=== PATIENT | male | born 1970 | race Caucasian/White ===

== ENCOUNTER 2017-07-06 13:18 | Emergency (ER) | payer BC ==
[~2017-07-06] VITALS: Ht 170.2 cm; Wt 109.0 kg
[2017-07-06 14:19] LABS: CHLORIDE 100 mEq/L (99-109); POTASSIUM 3.7 mEq/L (3.7-5.4); SODIUM 136 mEq/L (136-147)
[2017-07-06 14:21] LABS: GLUCOSE 150 mg/dL (70-99)
[2017-07-06 14:27] LABS: HEMATOCRIT 41.2 % (38.0-50.0); MCH 21.7 PG (29.0-34.0); MCV 67.7 FL (86-99); PLATELET COUNT 307 K/uL (156-360); RBC DIS.WIDTH-CV 14.3 % (11.8-14.6); RBC DIS.WIDTH-SD 33.5 % (39-53); RED BLOOD COUNT 6.09 M/uL (4.00-5.50); WHITE BLOOD COUNT 8.6 K/uL (4.1-10.2)
[2017-07-06 14:38] LABS: GFR ESTIMATE (CALCULATED) > 59 mL/min/
[2017-07-06 15:24] LABS: UREA NITROGEN (BUN) 28 mg/dL (9-23)
[2017-07-06 15:26] LABS: ALKALINE PHOSPHATASE 62 IU/L (3-129); ANION GAP 11 MEQ/L (2-14)
[2017-07-06 15:27] LABS: LIPASE 15 U/L (1.0-51.0); TOTAL BILIRUBIN 0.7 MG/DL (0.0-1.0)
[2017-07-06 17:14] LABS: ADD MIUA? YES; BILIRUBIN NEGATIVE; BLOOD NEGATIVE; COLOR YELLOW ((YELLOW)); GLUCOSE (STRIP) NEGATIVE; KETONES NEGATIVE; LEUKOCYTES NEGATIVE; NITRITE NEGATIVE; PROTEIN (STRIP) 30; SPECIFIC GRAVITY 1.026 (1.000-1.030); UROBILINOGEN 0.2 MG/DL (0.2-1.0)
[2017-07-06 17:20] LABS: BACTERIA NONE SEEN /HPF; CALCIUM OXALATE CRYSTALS 2+ /HPF; EPITHELIAL CELLS NONE SEEN /HPF; MUCUS TRACE /LPF; RED BLOOD CELLS 0-5 /HPF (0-5); UCUL ADDED? NO; WHITE BLOOD CELLS 0-5 /HPF (0-5)
[2017-07-06] MEDS ORDERED: ZOFRAN ODT4 MG PO (17:23)
[2017-07-06] MEDS ORDERED: BENTYL10 MG PO (17:23)
[2017-07-06 17:38] VITALS: BP 176/106
== END 2017-07-06 17:39 | disposition home or self-care (01) ==
LOC: EME 13:18
DX: R10.11 Right upper quadrant pain (principal); R11.2 Nausea with vomiting, unspecified
CPT/HCPCS: 74177; 80053; 81003; 83690; 85027; 99281; 99284; J1885; J2405; J7030